=== PATIENT | female | born 1965 | race Caucasian/White ===

== ENCOUNTER 2018-07-13 21:02 | Emergency (ER) | payer MEDICAID ==
[2018-07-13] MEDS: AMOXICILLIN/CLAV 875 MG TAB PO (23:34)
== END 2018-07-13 23:45 | disposition home or self-care (01) ==
LOC: FTE 23:45
DX: S51.852A Open bite of left forearm, initial encounter (principal); S11.95XA Open bite of unspecified part of neck, initial encounter; W54.0XXA Bitten by dog, initial encounter; Y92.9 Unspecified place or not applicable
CPT/HCPCS: 99283; Z7502